=== PATIENT | female | born 2000 | race Caucasian/White ===

== ENCOUNTER 2025-01-10 05:33 | Inpatient (IN) | payer BC ==
[2025-01-09 10:57] VITALS: BMI 28.0
[2025-01-09 11:05] LABS: Hematocrit 33.2 % (34.9-44.5); Hemoglobin 10.9 g/dL (12.0-15.5); Mean Corpuscular Hemoglobin 26.8 pg (27.0-33.0); Mean Corpuscular Volume 81.8 fL (81.6-98.3); Platelet Count 321 10x3/uL (150-450); Red Blood Cell (RBC) Count 4.06 10x6/uL (3.90-5.03); White Blood Cell (WBC) Count 7.38 10x3/uL (3.5-10.5)
[2025-01-09 11:41] LABS: Syphilis Antibody Index 0.05 S/CO (<1.00 Non-Reactive)
[2025-01-09 11:43] LABS: Hep B Surf Ag Non-Reactive S/CO (NonReactive)
[2025-01-10] MEDS ORDERED: Famotidine/PF 20 mg/2ml Vial SLOW IVP PRN (05:55)
[2025-01-10] MEDS ORDERED: Carboprost 250 MCG/ML AMP IM PRN (05:55)
[2025-01-10] MEDS ORDERED: hydrALAZINE 20 MG/ML VIAL SLOW IVP PRN ×2 (05:55→08:48)
[2025-01-10] MEDS ORDERED: Diphenoxylate HCl/Atropine Tablet PO PRN (05:55)
[2025-01-10] MEDS ORDERED: Methylergonovine 0.2 MG/ML VIAL IM PRN ×2 (05:55→08:48)
[2025-01-10] MEDS ORDERED: Tranexamic Acid 1,000 MG/10 ML VIAL IVP PRN (05:55)
[2025-01-10] MEDS ORDERED: Ondansetron PF 4 MG/2 ML Vial IVP PRN ×4 (05:55→09:35)
[2025-01-10] MEDS ORDERED: Bicitra 30 ML UDCUP PO PRN (05:55)
[2025-01-10] MEDS ORDERED: Oxytocin 30 units/NS 500 ML 500 ML IV SCH ×2 (06:00→09:00)
[2025-01-10] MEDS ORDERED: Lanolin Ointment 7 GM TUBE TOP PRN (08:48)
[2025-01-10] MEDS ORDERED: Acetaminophen 325 MG TAB PO PRN ×2 (08:48→11:01)
[2025-01-10] MEDS ORDERED: Methylergonovine 0.2 MG TAB PO PRN (08:48)
[2025-01-10] MEDS ORDERED: Bisacodyl 10 MG SUPP PR PRN (08:48)
[2025-01-10] MEDS ORDERED: diphenhydrAMINE 50 MG/ML VIAL IVP PRN (09:35)
[2025-01-10] MEDS ORDERED: Meperidine HCl/PF 25 MG (1 mL) VIAL SLOW IVP PRN (09:35)
[2025-01-10] MEDS ORDERED: Communication Order-Pharmacy FS SCH (09:45)
[2025-01-10] MEDS: Ketorolac Tromethamine 30 MG (1 mL) VIAL IVP SCH (09:57)
[2025-01-10] MEDS: Erythromycin Base 0.5% Oint 1 GM TUBE ONE (10:31)
[2025-01-10] MEDS: Ferrous Sulfate 325 MG TAB PO SCH (10:31)
[2025-01-10] MEDS: PHENYLEPHRINE-NS 100 MCG/ML 10 ML SYRINGE ONE (10:32)
[2025-01-10] MEDS: Oxytocin 10 UNITS/ML VIAL ONE (10:32)
[2025-01-10] MEDS: HYDROmorphone 0.5 MG/0.5 ML SYRINGE SLOW IVP PRN (10:39)
[2025-01-10] MEDS ORDERED: HYDROcodone/Acetaminophen 10/325 mg Tablet PO PRN (11:00)
[2025-01-10] MEDS: Ketorolac Tromethamine 30 MG (1 mL) VIAL IVP PRN (16:32)
[2025-01-10] MEDS: Simethicone Chewable 80 MG TAB PO PRN (21:36)
[2025-01-10] MEDS: diphenhydrAMINE 25 MG CAP PO PRN (21:47)
[2025-01-11 06:12] LABS: Hematocrit 27.8 % (34.9-44.5); Hemoglobin 8.9 g/dL (12.0-15.5); Mean Corpuscular Hemoglobin 26.9 pg (27.0-33.0); Mean Corpuscular Volume 84.0 fL (81.6-98.3); Platelet Count 276 10x3/uL (150-450); Red Blood Cell (RBC) Count 3.31 10x6/uL (3.90-5.03); White Blood Cell (WBC) Count 9.65 10x3/uL (3.5-10.5)
[2025-01-11] MEDS: Boostrix 0.5 ML (Tdap) VIAL (>/=7 yrs of age) IM ONE (07:39)
[2025-01-11] MEDS: Acetaminophen 325 MG TAB PO PRN (08:30)
[2025-01-11] MEDS: HYDROcodone/Acetaminophen 10/325 mg Tablet PO PRN (08:30)
[2025-01-11] MEDS: Ibuprofen 800 MG TAB PO SCH (14:54)
[2025-01-12] MEDS: HYDROcodone/Acetaminophen 5/325 mg Tablet PO PRN (01:08)
[2025-01-12 08:36] VITALS: BP 105/63; TEMP 97.4
== END 2025-01-12 13:20 | disposition home or self-care (01) | DRG 788 ==
LOC: CSHLD 05:33 → CSHANTE 10:59
PROVIDERS: ADMIT Obstetrics & Gynecology; ATTEND Obstetrics & Gynecology
PROC: 10D00Z1 Extraction of Products of Conception, Low, Open Approach (ICD-10-PCS; principal; 2025-01-10)
PROC: 4A1HXCZ Monitoring of Products of Conception, Cardiac Rate, External Approach (ICD-10-PCS; 2025-01-10)
DX: O32.1XX0 Maternal care for breech presentation, not applicable or unspecified (principal); O34.211 Maternal care for low transverse scar from previous cesarean delivery; Z37.0 Single live birth; Z3A.39 39 weeks gestation of pregnancy
CPT/HCPCS: 36415; 51702; 85027; 86780; 86850; 86900; 86901; 87340; J1171; J1885; J2274; J2590; J3010; J7120